=== PATIENT | female | born 1975 | race Caucasian/White ===

== ENCOUNTER 2020-12-03 14:12 | Emergency (ER) | payer SELFPAY ==
[~2020-12-03] VITALS: Ht 167.6 cm; Wt 77.0 kg
[2020-12-03 16:15] LABS: BASOPHILS % 0.9 % (0.0-2.0); EOSINOPHILS % 0.8 % (0.0-5.0); HEMATOCRIT. 25.8 % (36.0-48.0); LYMPHOCYTES % 21.3 % (20.0-50.0); MEAN CORPUSCULAR HEMOGLOBIN 20.5 pg (28.0-32.0); MEAN CORPUSCULAR VOLUME 66.3 fL (81.0-99.0); MEAN PLATELET VOLUME 7.7 fl (7.4-10.4); MONOCYTES % 5.7 % (2.0-8.0); NEUTROPHILS % 71.3 % (40.0-76.0); PLATELET 348 x1000/uL (130-400); RED CELL DISTRIBUTION WIDTH 18.3 % (11.6-14.6)
[2020-12-03] MEDS ORDERED: SODIUM CHLORIDE 0.9% 1,000 ML IV ONE (16:15)
[2020-12-03] MEDS ORDERED: LEVETIRACETAM 500MG PREMIX 100 ML IV ONE (16:15)
[2020-12-03 16:21] LABS: CHLORIDE 111 mEq/L (98-107)
[2020-12-03 16:25] LABS: ETHANOL BLOOD < 10 mg/dL
[2020-12-03 16:31] LABS: HCG SCREEN NEGATIVE
[2020-12-03 16:46] LABS: PLATELET ESTIMATE NORMAL
[2020-12-03] MEDS ORDERED: POTASSIUM CHLORIDE 20MEQ TABLET SR PO NR (17:15)
[2020-12-03 19:17] LABS: CLARITY URINE CLEAR (CLEAR); COLOR URINE YELLOW (YELLOW); KETONES URINE NEGATIVE (NEGATIVE); LEUKOCYTE ESTERASE URINE NEGATIVE (NEGATIVE); NITRITE URINE NEGATIVE (NEGATIVE); OCCULT BLOOD URINE NEGATIVE (NEGATIVE); PH URINE 6.5 (4.5-8.0); PROTEIN URINE NEGATIVE (NEGATIVE); SPECIFIC GRAVITY URINE 1.011 (1.005-1.030); UROBILINOGEN URINE 0.2 E.U./dL (0.2-1.0)
[2020-12-03 19:51] VITALS: BP 112/70
[2020-12-03 19:52] LABS: METHADONE URINE SCREEN NEGATIVE (NEGATIVE); OPIATES URINE SCREEN NEGATIVE (NEGATIVE)
[2020-12-03 19:53] LABS: *AMPHETAMINES SCREEN URINE NEGATIVE (NEGATIVE); *BARBITURATES SCREEN URINE NEGATIVE (NEGATIVE); *BENZODIAZEPINES SCREEN URINE NEGATIVE (NEGATIVE); *COCAINE SCREEN URINE NEGATIVE (NEGATIVE); CANNABINOID URINE SCREEN NEGATIVE (NEGATIVE); PHENCYCLIDINE URINE SCREEN NEGATIVE (NEGATIVE)
== END 2020-12-03 19:53 | disposition home or self-care (01) ==
LOC: ER 14:12
DX: R56.9 Unspecified convulsions (principal); D64.9 Anemia, unspecified; E87.6 Hypokalemia
CPT/HCPCS: 36415; 70450; 80053; 80305; 80320; 81003; 84703; 85025; 93005; 96365; 99285; J1953; J7030; G0480